=== PATIENT | female | born 1960 | race Caucasian/White ===

== ENCOUNTER → 2017-07-21 | Day surgery (SDC) | payer BC ==
[~2017-07-21] MED LIST: ACETAMINOPHEN 1000 MG/100 ML 100 ML IV ONE; BUPIVACAINE/EPINEPHRINE 0.25% PF 10 ML VIAL ONE; IBUP-232 PO; KETOROLAC TROMETHAMINE 30 MG/ML (IVP) VIAL IV PUSH ONE; LACTATED RINGER'S 1000 ML INJ 1,000 ML ONE; LORTA5 PO; MIDAZOLAM HCL 2 MG/2 ML VIAL ONE; ONDANSETRON HCL 4 MG/2 ML VIAL IV PUSH ONE; PROPOFOL 200 MG/20 ML AMP IV ONE; Z.0.NO CURRENT MEDS; ceFAZolin INJ 1,000 MG VIAL ONE
--- NOTE | 2017-07-21 12:56 | TN ---
cc: Faraz Taylor MD DATE OF SURGERY: 07/21/2017 PREOPERATIVE DIAGNOSIS: Mass located on the right preauricular region. 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 SURGEON: Faraz Taylor MD, [facility] ANESTHESIA: General plus a total of 20 mL of 1% lidocaine with epinephrine. ESTIMATED BLOOD LOSS: Minimal. COMPLICATIONS: None. DRAINS: 1 ReliaVac drain. DESCRIPTION OF PROCEDURE: The patient was appropriately consented, marked, and anesthetized. The skin was sterilized with Microcyn. Sterile draping applied. Local anesthetic was infiltrated. The preauricular incision location, a cervicofacial rhytidectomy incision, was on the preauricular area. With this, I proceeded to perform the elevation of the skin. I elevated the SMAS by exposing the parotid fascia and then elevated the posterior distal lobule of the parotid gland where this tumor was sitting right at the base of the gland. It was appropriately encapsulated. Without any difficulty, I removed it and sent it to pathology for permanent analysis. A deep accessory node that I found also was sent today for further analysis. No evidence of pathology was identified there. I laid down the gland and sutured with 5-0 Monocryl suture and closed the SMAS layer. At this level, however, I left a ReliaVac drain which was brought out through a separate stab wound. I proceed to perform the closure of the skin with 5-0 Monocryl suture and 5-0 fast-absorbing gut. A compression dressing was applied over all. The patient was awakened and extubated in the operating room, transported back to the postanesthesia care unit in stable condition. No complications of the procedure and the patient tolerated the procedure fairly well. Faraz Taylor MD [facility] , 12:24 PM , 12:55 PM [place]
== END | disposition home or self-care (01) ==
LOC: ESDC 09:49
PROVIDERS: ATTEND Plastic Surgery
DX: D11.0 Benign neoplasm of parotid gland (principal)
CPT/HCPCS: 00100; 00320; 38510; 42410; 88305; 88307; J0131; J0690; J1885; J2250; J2405; J3010; J7120